=== PATIENT | male | born 1950 | race Caucasian/White ===

== ENCOUNTER → 2019-11-15 | Outpatient (CLI) | payer MEDICARE ==
[2019-11-15 13:48] LABS: Rheumatoid Factor, Serum Negative (Negative)
[2019-11-17 11:32] LABS: Antinuclear Antibody Screen Negative (Negative)
== END | disposition home or self-care (01) ==
LOC: LAB SHORT 11:20 → LAB 11:20
PROVIDERS: Emergency Medicine
DX: M25.559 Pain in unspecified hip (principal)
CPT/HCPCS: 86038; 86430

== ENCOUNTER → 2020-05-11 | Outpatient (CLI) | payer MEDICARE ==
[2020-05-11 11:59] LABS: BASOPHILS ABSOLUTE AUTO 0.03 K/mm3 (0.00-0.23); BASOPHILS PERCENT AUTO 1 % (0-2); EOSINOPHILS ABSOLUTE AUTO 0.11 K/mm3 (0.00-0.68); EOSINOPHILS PERCENT AUTO 3 % (0-6); Hematocrit 38.6 % (37.0-53.0); Hemoglobin 12.5 g/dL (13.5-17.5); IMMATURE GRAN ABSOLUTE AUTO 0.01 K/mm3 (0.00-0.10); IMMATURE GRAN PERCENT AUTO 0 % (0-1); LYMPHOCYTES ABSOLUTE AUTO 0.38 K/mm3 (0.84-5.20); LYMPHOCYTES PERCENT AUTO 11 % (21-46); MONOCYTES ABSOLUTE AUTO 0.37 K/mm3 (0.16-1.47); MONOCYTES PERCENT AUTO 11 % (4-13); Mean Corpuscular HGB 31.2 pg (26.0-34.0); Mean Corpuscular HGB Conc 32.4 g/dL (31.5-36.5); Mean Corpuscular Volume 96 fL (80-100); Mean Platelet Volume 9.6 fL (9.1-12.4); NEUTROPHILS ABSOLUTE AUTO 2.55 K/mm3 (1.96-9.15); NEUTROPHILS PERCENT AUTO 74 % (41-73); Platelet Count 150 K/mm3 (150-400); RDW Coefficient Variation 14.4 % (11.7-14.2); RDW Standard Deviation 51.1 fL (35.1-46.3); Red Blood Cell Count 4.01 M/mm3 (4.30-5.90); White Blood Cell Count 3.45 K/mm3 (4.00-11.30)
[2020-05-11 12:17] LABS: Very Low Density Lipoprot Chol 11 mg/dL (6-32)
[2020-05-11 12:21] LABS: CHOL/HDL RATIO 3.4; Cholesterol 238 mg/dL (50-200); HDL Cholesterol 70 mg/dL (>39); LDL/HDL RATIO 2.2; Low Density Lipoprotein Chol 157 mg/dL (0-110); Triglycerides 57 mg/dL (30-160)
[2020-05-11 12:26] LABS: Alanine Aminotransfer (ALT/SGP 20 U/L (12-78); Albumin, Blood 3.4 g/dL (3.4-5.0); Alk Phos 49 U/L (50-136); Anion Gap 5 mmol/L (6-16); Aspartate Aminotrans (AST/SGOT 22 U/L (12-37); Bilirubin, Total 0.5 mg/dL (0.1-1.0); Blood Urea Nitrogen 18 mg/dL (8-24); Bun/Creatinine Ratio 18.4 (12.0-20.0); CO2, Blood 29 mmol/L (21-32); Calcium, Blood 8.3 mg/dL (8.5-10.1); Chloride, Blood 105 mmol/L (98-108); Creatinine, Blood 0.98 mg/dL (0.60-1.20); Globulin, Blood 3.5 g/dL (2.2-4.0); Glomerular Filtration Rate >60 (60-); Glucose, Blood 94 mg/dL (70-99); Sodium, Blood 139 mmol/L (136-145); Total Protein, Blood 6.9 g/dL (6.4-8.2)
== END | disposition home or self-care (01) ==
LOC: LAB 07:23 → LAB SHORT 07:23
PROVIDERS: Internal Medicine
DX: E78.5 Hyperlipidemia, unspecified (principal)
CPT/HCPCS: 80053; 80061; 84443; 85025

== ENCOUNTER 2022-08-31 08:09 | Day surgery (SDC) | payer MEDICARE ==
[~2022-08-31] VITALS: Ht 177.8 cm; Wt 82.3 kg
[2022-08-31] MEDS ORDERED: VITAMIN D32000 UNI1 (08:50)
[2022-08-31] MEDS ORDERED: Vitamin B-150 MG (08:50)
[2022-08-31] MEDS ORDERED: ROSU10TA (08:50)
== END 2022-08-31 10:57 | disposition home or self-care (01) ==
LOC: ORSCSDS 08:09
PROVIDERS: Internal Medicine Gastroenterology
PROC: 0DBL8ZX Excision of Transverse Colon, Via Natural or Artificial Opening Endoscopic, Diagnostic (ICD-10-PCS; principal; 2022-08-31 09:45)
DX: Z12.11 Encounter for screening for malignant neoplasm of colon (principal); D12.3 Benign neoplasm of transverse colon; Z86.010 Personal history of colon polyps; G47.33 Obstructive sleep apnea (adult) (pediatric)
CPT/HCPCS: 88305; J2704; J7120

== ENCOUNTER → 2022-10-07 | Outpatient (CLI) | payer MEDICARE ==
[~2022-10-07] MED LIST: ROSU10TA; VITAMIN D32000 UNI1; Vitamin B-150 MG
== END ==
LOC: LAB 11:58 → LAB SHORT 11:58
DX: L01.01 Non-bullous impetigo (principal)
CPT/HCPCS: 87070; 87205

== ENCOUNTER 2025-04-15 11:52 | Emergency (ER) | payer MEDICARE ==
[~2025-04-15] VITALS: Ht 175.3 cm; Wt 81.7 kg
[2025-04-15 12:32] LABS: BASOPHILS ABSOLUTE AUTO 0.03 K/mm3 (0.00-0.23); BASOPHILS PERCENT AUTO 0 % (0-2); EOSINOPHILS ABSOLUTE AUTO 0.21 K/mm3 (0.00-0.68); EOSINOPHILS PERCENT AUTO 2 % (0-6); Hematocrit 25.2 % (37.0-53.0); Hemoglobin 8.3 g/dL (13.5-17.5); IMMATURE GRAN ABSOLUTE AUTO 0.30 K/mm3 (0.00-0.10); IMMATURE GRAN PERCENT AUTO 3 % (0-1); LYMPHOCYTES ABSOLUTE AUTO 0.99 K/mm3 (0.84-5.20); LYMPHOCYTES PERCENT AUTO 11 % (21-46); MONOCYTES ABSOLUTE AUTO 1.01 K/mm3 (0.16-1.47); MONOCYTES PERCENT AUTO 11 % (4-13); Mean Corpuscular HGB Conc 32.9 g/dL (31.5-36.5); Mean Corpuscular Volume 94 fL (80-100); NEUTROPHILS ABSOLUTE AUTO 6.58 K/mm3 (1.96-9.15); NEUTROPHILS PERCENT AUTO 72 % (41-73); NRBC ABSOLUTE 0.03 K/mm3 (0.00-0.02); NRBC Auto 0.3 /100 WBC (0.0-0.2); RDW Coefficient Variation 14.9 % (11.7-14.2); RDW Standard Deviation 49.3 fL (35.1-46.3)
[2025-04-15] MEDS ORDERED: GALANTAMINE PO (12:32)
[2025-04-15] MEDS ORDERED: MEMANTINE HCL E14 MG PO (12:33)
[2025-04-15] MEDS ORDERED: METO25ER PO (12:33)
[2025-04-15] MEDS ORDERED: METHI10 PO (12:34)
[2025-04-15 12:46] LABS: Platelet Count 20 K/mm3 (150-400)
[2025-04-15 12:55] LABS: Alanine Aminotransfer (ALT/SGP 47.0 U/L (12-78); Albumin, Blood 3.1 g/dL (3.4-5.0); Albumin/Globulin Ratio 0.9 (0.8-1.8); Anion Gap 8.0 mmol/L (3-11); Aspartate Aminotrans (AST/SGOT 67.0 U/L (12-37); Bilirubin, Total 2.2 mg/dL (0.1-1.0); Blood Urea Nitrogen 30.0 mg/dL (8-24); CO2, Blood 27.0 mmol/L (21-32); Calcium, Blood 8.0 mg/dL (8.5-10.1); Chloride, Blood 106.0 mmol/L (98-108); Creatinine, Blood 1.05 mg/dL (0.60-1.20); Globulin, Blood 3.6 g/dL (2.2-4.0); Glucose, Blood 120.0 mg/dL (70-99); Potassium, Blood 4.0 mmol/L (3.5-5.5); Sodium, Blood 137.0 mmol/L (136-145); Total Protein, Blood 6.7 g/dL (6.4-8.2)
[2025-04-15 14:26] LABS: Prothrombin Time Results 11.9 Sec (9.7-11.5)
[2025-04-15 15:06] LABS: IMMATURE RETIC FRACTION 37.0 % (2.3-16.0); RETIC HGB EQUIVALENT 34.0 pg (28.20-36.60); RETICULOCYTE ABSOLUTE 0.0694 M/mm3 (0.0200-0.1100); RETICULOCYTE COUNT PERCENT 2.88 % (0.50-2.50)
[2025-04-15 15:40] LABS: Bilirubin, Direct 0.6 mg/dL (0.0-0.3); Bilirubin, Indirect 1.4 mg/dL (0.1-0.7); Bilirubin, Total 2.0 mg/dL (0.1-1.0)
[2025-04-15 17:01] LABS: Influenza A, PCR NEGATIVE (NEGATIVE); Influenza B, PCR NEGATIVE (NEGATIVE); Resp Syncytial Virus, PCR NEGATIVE (NEGATIVE); SARS-Cov-2 (COVID-19) PCR, MMC NEGATIVE (NEGATIVE)
[2025-04-15 17:28] VITALS: BP 101/76
[2025-04-16 23:47] LABS: HAPTOGLOBIN <10 mg/dL (30-200)
[2025-04-17 15:07] LABS: LACTATE DEHYDROGENASE - 1 16 % (14-27); LACTATE DEHYDROGENASE - 2 25 % (29-42); LACTATE DEHYDROGENASE - 3 22 % (18-30); LACTATE DEHYDROGENASE - 4 14 % (8-15); LACTATE DEHYDROGENASE - 5 23 % (6-23); LACTATE DEHYDROGENASE,TOTAL 1464 U/L (105-230)
== END 2025-04-15 18:14 | disposition short-term general hospital (02) ==
LOC: ER 11:52
PROVIDERS: Emergency Medicine; Internal Medicine Hematology & Oncology; Physician Assistant
DX: M31.19 Other thrombotic microangiopathy (principal); R47.01 Aphasia; F01.50 Vascular dementia, unspecified severity, without behavioral disturbance, psychotic disturbance, mood disturbance, and anxiety; Z79.899 Other long term (current) drug therapy
CPT/HCPCS: 70450; 70496; 70498; 80053; 82247; 82248; 83010; 83615; 83625; 85025; 85045; 85379; 85384; 85610; 85730; 86880; 87637; 93005; 93010; A9270; Q9967

== ENCOUNTER → 2025-05-15 | Outpatient (CLI) | payer MEDICARE ==
[~2025-05-15] MED LIST changes: +GALANTAMINE PO; +MEMANTINE HCL E14 MG PO; +METHI10 PO; +METO25ER PO
== END ==
LOC: LAB 13:19 → LAB SHORT 13:19
PROVIDERS: Internal Medicine Hematology & Oncology
DX: D69.3 Immune thrombocytopenic purpura (principal)
CPT/HCPCS: 85397